=== PATIENT | female | born 1995 | race Caucasian/White ===

== ENCOUNTER 2017-06-11 17:05 | Emergency (ER) | payer BC ==
[2017-06-11 19:12] VITALS: BP 138/87
--- NOTE | 2017-06-11 20:13 | ED ---
GI/ HPI - HPI Summary HPI Summary: 22 yr old with the complaint of frequency of urination and low back pain for a couple of days. She states she visited her boyfriend in [place] last month, returned from there and had a UTI. Was put on bactrim for five days and symptoms went away. She states at that time she had frequency and dysuria. She was treated in [facility]. She denies fever and chills today. She denies vaginal bleeding, and vaginal discharge. denies NVD. She states she has been with the same boyfriend for over a year with no other partners. 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 - History of Current Complaint Chief Complaint: UCBackPain Time Seen by Provider: 06/11/17 19:51 Stated Complaint: URINARY,LOW BACK PAIN Hx Last Menstrual Period: 06/01/17 Pain Intensity: 4 - Allergy/Home Medications Allergies/Adverse Reactions: Allergies Allergy/AdvReac Type Severity Reaction Status Date / Time MS Azithromycin Allergy Rash Verified 02/13/16 18:35 [From Zithromax] MS Cefdinir [From Omnicef] Allergy Rash Verified 02/13/16 18:35 MS Sodium Benzoate Allergy Rash Verified 02/13/16 18:35 [From Omnicef] Home Medications: Home Medications Ethinyl Estradiol/Drospirenone [Flora 28 Tablet] 1 each PO DAILY 06/11/17 [ History Confirmed 06/11/17] PMH/Surg Hx/FS Hx/Imm Hx - Surgical History Surgery Procedure, Year, and Place: wisdom teeth. TONSILLECTOMY Infectious Disease History: No Infectious Disease History: Denies: Traveled Outside the [place] in Last 30 Days - Family History Known Family History: Negative: Diabetes - Social History Occupation: Student Lives: Dormitory/Roommates Alcohol Use: Weekly Substance Use Type: Reports: None Smoking Status (MU): Never Smoked Tobacco Review of Systems Negative: Fever, Chills Positive: frequency, flank pain All Other Systems Reviewed And Are Negative: Yes Physical Exam - Summary Physical Exam Summary: She appears very well, seating in chair and not in any pain or distress. Triage Information Reviewed: Yes Vital Signs On Initial Exam: Initial Vitals Temp Pulse Resp BP Pulse Ox 99 F 104 18 138/87 100 06/11/17 19:06 06/11/17 19:06 06/11/17 19:06 06/11/17 19:06 06/11/17 19:06 Vital Signs Reviewed: Yes Appearance: Positive: Well-Appearing, No Pain Distress Skin: Positive: Warm, Skin Color Reflects Adequate Perfusion Head/Face: Positive: Normal Head/Face Inspection Eyes: Positive: EOMI Neck: Positive: Nontender Respiratory/Lung Sounds: Positive: Clear to Auscultation, Breath Sounds Present Cardiovascular: Positive: RRR. Negative: Murmur Abdomen Description: Positive: Nontender. Negative: CVA Tenderness (R), CVA Tenderness (L) Musculoskeletal: Positive: Strength/ROM Intact Neurological: Positive: Sensory/Motor Intact, Alert, Oriented to Person Place, Time, CN Intact II-III, Normal Gait, Speech Normal - [place] Coma Scale Best Eye Response: 4 - Spontaneous Best Motor Response: 6 - Obeys Commands Best Verbal Response: 5 - Oriented Coma Scale Total: 15 Diagnostics - Vital Signs Vital Signs Temp Pulse Resp BP Pulse Ox 06/11/17 19:06 99 F 104 18 138/87 100 - Laboratory Lab Results: Lab Results 06/11/17 06/11/17 Range/Units 19:21 19:24 POC Urine Color Yellow POC Urine Clarity Slightly cloudy POC Urine pH 7.0 (5-9) POC Ur Specif [place] 1.015 (1.010-1.030) POC Urine Protein Negative (Negative) POC Ur Glucose (UA) Negative (Negative) POC Urine Ketones Negative (Negative) POC Urine Blood Negative (Negative) POC Urine Nitrite Negative (Negative) POC Urine Bilirubin Negative (Negative) POC Urine Urobilinogen 0.2 (Negative) POC U Leukocyte Esteras Negative (Negative) POC Ur Test Negative (Negative) Lab Statement: Any lab studies that have been ordered have been reviewed, and results considered in the medical decision making process. GIGU Course/Dx - Course Course Of Treatment: 22 yr old with some urinary symptoms but neg urine dip. culture sent. She refused a pelvic exam, she refuses all STD screening here, and she states she will go to her own [facility] for an exam. I offered the female provider to examin her and she refused. The patient declined me ordering GC and chlamydia on her urine sample and refused letting me do this. She has been instructed to go to the ER for any worsening symptoms. - Diagnoses Provider Diagnoses: Urinary frequency, Back pain Discharge - Discharge Plan Condition: Good Disposition: HOME Patient Education Materials: Acute Low Back Pain (ED), Urinary Urgency and Frequency (DC) Referrals: [facility] [Outside] Non Staff,Doctor [Primary Care Provider] - Additional Instructions: be sure to follow up for a pelvic exam with your [facility] this week, and if your symptoms worsen at all go to the ER for further evaluation.
== END 2017-06-11 20:35 | disposition home or self-care (01) ==
LOC: UCCORT 17:05
DX: R35.0 Frequency of micturition (principal); M54.9 Dorsalgia, unspecified; Z32.02 Encounter for pregnancy test, result negative; Z87.440 Personal history of urinary (tract) infections; Z53.20 Procedure and treatment not carried out because of patient's decision for unspecified reasons
CPT/HCPCS: 81003; 84702; 87086; 99212; G0463